=== PATIENT | male | born 1940 | race Caucasian/White ===

== ENCOUNTER 2018-09-25 17:07 | Emergency (ER) | payer MEDICARE ==
--- NOTE | 2018-09-25 17:16 | ED ---
GI/ HPI - HPI Summary HPI Summary: 77 year old M brought in by ambulance to [facility] with a chief complaint of partially obstructed airway s/p getting a piece of roast beef stuck in his throat after eating lunch at 12:00 today. The patient rates the pain 0/10 in severity. Symptoms aggravated by nothing. Symptoms alleviated by nothing. Patient denies shortness of breath and chest pain. - History of Current Complaint Stated Complaint: OBSTRUCTION AIRWAY PER EMS Hx Obtained From: Patient Onset/Duration: Started Hours Ago - lunch, Still Present Timing: Constant Associated Signs and Symptoms: Positive: Negative - SOB Aggravating Factor(s): Nothing Alleviating Factor(s): Nothing - Allergy/Home Medications Home Medications: Home Medications Albuterol inh POWDER (NF) [Proair Respiclick] 2 puff INH Q6HR PRN 09/25/18 [ History Confirmed 09/25/18] Apixaban* [Eliquis*] 5 mg PO BID 09/25/18 [History Confirmed 09/25/18] Ascorbic Acid TAB* [Vitamin C TAB*] 500 mg PO DAILY 09/25/18 [History Confirmed 09/25/18] Atorvastatin* [Lipitor*] 80 mg PO QPM 09/25/18 [History Confirmed 09/25/18] Budesonide/Formote 160/4.5(NF) [Symbicort 160/4.5 (NF)] 1 puff INH BID 09/25/18 [History Confirmed 09/25/18] Glucosamine HCl 1,500 mg PO DAILY 09/25/18 [History Confirmed 09/25/18] Latanoprost 0.005%* [Xalatan 0.005%*] 1 drop BOTH EYES QPM 09/25/18 [History Confirmed 09/25/18] Levothyroxine TAB* [Synthroid TAB*] 75 mcg PO DAILY 09/25/18 [History Confirmed 09/25/18] Multivitamins/Minerals TAB* [Theragran/minerals TAB*] 1 tab PO DAILY 09/25/18 [ History Confirmed 09/25/18] [place]-3S/Dha/Epa/Fish Oil [Fish Oil 1,200 mg Softgel] 1 cap PO EVERY OTHER DAY 09/25/18 [History Confirmed 09/25/18] Sotalol (NF) 120 mg PO BID 09/25/18 [History Confirmed 09/25/18] Vitamin E CAP* 400 unit PO EVERY OTHER DAY 09/25/18 [History Confirmed 09/25/18] PMH/Surg Hx/FS Hx/Imm Hx Previously Healthy: No Cardiovascular History: Reports: Hx Atrial Fibrillation, Hx Hypertension, Hx Myocardial Infarction, Other Cardiovascular Problems/Disorders - stent placement Respiratory History: Reports: Hx Asthma History: Reports: Hx Benign Prostatic Hyperplasia Sensory History: Reports: Hx Contacts or Glasses Denies: Hx Deafness Opthamlomology History: Reports: Hx Contacts or Glasses EENT History: Denies: Hx Deafness - Surgical History Surgery Procedure, Year, and Place: hernia repair, knee replacements, tympanoplasty - Family History Known Family History: Negative: Cardiac Disease, Hypertension, Diabetes - Social History Alcohol Use: None Hx Substance Use: No Substance Use Type: Reports: None Hx Tobacco Use: No Smoking Status (MU): Never Smoked Tobacco Review of Systems Negative: Chest Pain Positive: Other - partially obstructed airway . Negative: Shortness Of Breath All Other Systems Reviewed And Are Negative: Yes Physical Exam - Summary Physical Exam Summary: VITAL SIGNS: Reviewed. GENERAL: Patient is a well-developed and nourished male who is lying comfortable in the stretcher. Patient is not in any acute respiratory distress. Patient is drooling HEAD AND FACE: No signs of trauma. No ecchymosis, hematomas or skull depressions. No sinus tenderness. EYES: PERRLA, EOMI x 2, No injected conjunctiva, no nystagmus. EARS: Hearing grossly intact. Ear canals and tympanic membranes are within normal limits. MOUTH: Oropharynx within normal limits. NECK: Supple, trachea is midline, no adenopathy, no JVD, no carotid bruit, no c- spine tenderness, neck with full ROM. CHEST: Symmetric, no tenderness at palpation LUNGS: Clear to auscultation bilaterally. No wheezing or crackles. CVS: Regular rate and rhythm, S1 and S2 present, no murmurs or gallops appreciated. ABDOMEN: Soft, non-tender. No signs of distention. No rebound no guarding, and no masses palpated. Bowel sounds are normal. EXTREMITIES: FROM in all major joints, no edema, no cyanosis or clubbing. NEURO: Alert and oriented x 3. No acute neurological deficits. Speech is normal and follows commands. SKIN: Dry and warm. Triage Information Reviewed: Yes Vital Signs Reviewed: Yes GIGU Course/Dx - Course Assessment/Plan: 77 year old M brought in by ambulance to [facility] with a chief complaint of partially obstructed airway s/p getting a piece of roast beef stuck in his throat after eating lunch at 12:00 today. The patient rates the pain 0/10 in severity. Symptoms aggravated by nothing. Symptoms alleviated by nothing. Patient denies shortness of breath and chest pain. Patients past medical history significant for BPH, hypertension, dyslipidemia, CAD, NH status post stent placement on Eliquis, and GERD, asthma and paroxysmal atrial fibrillation. Patient was initially seen in the [facility] where they did blood work for this patient which showed a CBC without any significant abnormality, CMP showed a glucose of 104, BUN of 33, creatinine of 1.8. The physician assisting at [facility] discussed the case with Dr. Conti from GI who recommended for the patient to come to the [facility] where he will come and consult for this patient. I discussed case with Dr. Conti and he will come and consult for this patient. Patient will be signed out to Dr. Peralta at shift change. We are still awaiting for Dr. Conti to consult for the patient. - Diagnoses Provider Diagnoses: Esophagus, foreign body - Physician Notifications Discussed Care Of Patient With: Moisés Conti Time Discussed With Above Provider: 17:15 Instructed by Provider To: Other - Dr. Conti , agrees to consult the patient Discharge - Sign-Out/Discharge Documenting (check all that apply): Sign-Out Patient Signing out patient TO: Jeffrey Peralta - Awaiting GI consult Patient Received Moderate/Deep Sedation with Procedure: No - Discharge Plan Condition: Stable Referrals: Maria T Mccrary MD [Primary Care Provider] - - Billing Disposition and Condition Condition: STABLE - Attestation Statements Document Initiated by Scribe: Yes Documenting Scribe: Jessi Bonner Provider For Whom Scribe is Documenting (Include Credential): Ayad Rodriguez MD Scribe Attestation: Jessi Ventura, scribed for Ayad Rodriguez MD on 09/25/18 at 1856. Scribe Documentation Reviewed: Yes Provider Attestation: The documentation as recorded by the scribeJessi accurately reflects the service I personally performed and the decisions made by me, Ayad Rodriguez MD Status of Scribe Document: Viewed
[2018-09-25] MEDS ORDERED: Midazolam* 1 MG/ML 10 ML VIAL (10 MG) ONE (18:46)
[2018-09-25] MEDS ORDERED: fentaNYL* 50 MCG/ML 2 ML VIAL (100 MCG VIAL) ONE (18:46)
--- NOTE | 2018-09-25 19:13 | ED ---
Progress - Progress Note Progress Note: The patient is a sign-out from Dr. Ayad Rodriguez MD, to Dr. Jeffrey Peralta MD , at change of shift at 1900 pending further GI workup with consult with Dr. Conti and disposition. He is diagnosed with foreign body of the esophagus. Dr. Conti came to the patient in the ED at 1945. At 1999, we spoke concerning the patient's disposition. He will be discharged home with prescription for Omeprazole and Clotrimazole, in dosages discussed and agreed upon with Dr. Conti. He will also follow up with Dr. Conti in 2-3 weeks. He agrees with this plan and understands the need for return to the emergency department for any new or worsening symptoms. Course/Dx - Diagnoses Provider Diagnoses: Esophagus, foreign body - Provider Notifications Discussed Care Of Patient With: Moisés Conti - gastroenterology Time Discussed With Above Provider: 20:00 Instructed by Provider To: Other - Dr. Conti came to the ED for a consult with the patient. He suggests prescribing the patient Omprazole 20mg daily ( morning) and Clotrimazole QID and then BID for three weeks. He will also see the patient for a follow-up appointment in 2-3 weeks. Discharge - Sign-Out/Discharge Documenting (check all that apply): Patient Departure - Patient will be discharged home., Receiving Sign-Out Receiving patient FROM: Ayad Rodriguez - Patient was a sign-out from Dr. Rodriguez at shift change pending GI consult and disposition. Patient Received Moderate/Deep Sedation with Procedure: Yes - Discharge Plan Condition: Stable Disposition: HOME Prescriptions: Clotrimazole YANN* [Mycelex Yann*] 10 mg MT SEE INSTRUCTIONS #105 yann Omeprazole CAP (NF) [Prilosec CAP* 20 MG] 20 mg PO DAILY #30 lilly. Patient Education Materials: Esophageal Foreign Body (ED), Procedural Sedation (ED) Referrals: Moisés Conti MD [Medical Doctor] - 2 Weeks Maria T Mccrary MD [Primary Care Provider] - 2 Days Additional Instructions: Please take medications as prescribed and discussed with Dr. Conti. Follow up with Dr. Conti in 2-3 weeks and your primary care provider as needed. RETURN TO THE EMERGENCY DEPARTMENT FOR ANY NEW OR WORSENING SYMPTOMS. - Billing Disposition and Condition Condition: STABLE Disposition: Home - Attestation Statements Document Initiated by Eliane: Yes Documenting Scribe: Lorenza Pulido Provider For Whom Eliane is Documenting (Include Credential): Dr. Jeffrey Peralta MD Scribe Attestation: Lorenza Ventura scribed for Dr. Jeffrey Peralta MD on 09/25/18 at 2022. Scribe Documentation Reviewed: Yes Provider Attestation: The documentation as recorded by the Lorenza esposito accurately reflects the service I personally performed and the decisions made by me, Dr. Jeffrey Peralta MD Status of Scribe Document: Viewed
[2018-09-25 20:13] VITALS: BP 142/76
--- NOTE | 2018-09-25 22:15 | CONS ---
GASTROENTEROLOGY CONSULT: DATE OF CONSULT: 09/25/18 CONSULTING PHYSICIAN: Dr. Ayad Rodriguez, Emergency Room. REASON FOR CONSULT: Impacted meat in the esophagus. 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 He has had this happen before, but just for seconds. He thinks it has been about once a month or maybe even less, beginning maybe 3 years ago. He was not in any particular [place] today. He can't explain why it was worse. He denies any acid, indigestion, or heartburn and does not take any gastrointestinal remedies by prescription or over the counter. He has never had an upper endoscopy. He does not believe he has told a physician about the difficulty swallowing events. He generally has a good appetite and his weight has been steadily slowly climbing. He has been a little more constipated recently. He denies any blood in the stool. He saw his regular physician about a month ago and there were no new findings and no changes in his meds. He follows up with a information security, that has been stable too in his opinion and confirmed by his and daughter who are with him. PAST MEDICAL HISTORY: 1. Coronary artery disease - status post stents at [facility] in 2013. 2. Mild obstructive pulmonary disease - on some inhalers. 3. Atrial fibrillation - on Eliquis - no history of clots 4. Joint disease - he has had bilateral knee replacements and bilateral revisions. His orthopedic surgeon told him that he cannot have further revisions. 5. Bilateral inguinal hernia repairs. SOCIAL HISTORY: He is a retired marinelli, worked on bridges. He is . He does not smoke and denies any alcohol intake. REVIEW OF SYSTEMS: No history of syncope, palpitations, recent chest pain, hemoptysis, TB, hepatitis, jaundice, recent abdominal pain, falls, head trauma, or overt blood clots. He has an upper denture, acquired about 40 years ago. PHYSICAL EXAM: He is a moderately overweight elderly man, in no overt distress , spitting into a basin. HEENT exam shows no icterus. Mucous membranes are normal. The denture appears ill fitting. There is no adenopathy. Lungs are clear bilaterally with diminished breath sounds at the bases. Heart sounds are irregular. He had a murmur. The abdomen is obese, firm, without tenderness. The exam is limited. Extremities show no edema and popliteal pulses are intact. DIAGNOSTIC STUDIES/LAB DATA: At [facility], BUN 33, creatinine 1.8. IMPRESSION: This 77-year-old man with 3 years of solid food dysphagia for unclear reasons has a larger bolus lodged in the esophagus. It is probably in unappreciated peptic stricture. It is indicated to get the foreign body out before he ends up with pressure ulcer or aspiration pneumonia. It was explained that that may have already occurred. Once the foreign body is relieved, he should come back for followup and presumably have dilation of the EG junction which is probably the site of obstruction. He and his family are aware there is a 5% chance of complications requiring readmission and possibly other more complex care. [id number]/[facility] #: [id number] LORENZA
--- NOTE | 2018-09-26 02:42 | PRO ---
DATE: 09/25/18 REFERRING PHYSICIAN: Maria T Mccrary Wayne.* PROCEDURES: Upper gastrointestinal endoscopy and removal of esophageal foreign body. INDICATION: This 77-year-old man presented with apparent roast beef impacted in the esophagus. He was spitting into a basin. He was afebrile and in no cardiorespiratory distress and with stable vitals. With his and daughter present, informed consent was obtained with an opportunity for questions, special concerns, and a discussion regarding the possibility of admission for variable findings and difficulties. ENDOSCOPIST: Dr. Conti MEDICATIONS: Midazolam 4, fentanyl 25. FINDINGS: He is a substantially overweight older man in no distress. He is spitting into a cup. He was positioned left side down and moderate sedation induced with sequential doses of medication. A bite block was placed. EGD: Larynx - not seen easily as he had a large powerful tongue. During the withdrawal phase, it was symmetric. Esophagus - easily entered. The mucosa had a zysho-ygu-ldig appearance consistent with monilia. There was increasing edema as one went distally and at about 30 cm, a large meat foreign body was seen. It appeared long and stringy. It was immobile. The diagnostic scope slid along it and then popped into the gastric cardia. Several such movements advanced the foreign body into the stomach. There was a large hiatal hernia from about 35 to 40. During the withdrawal phase, it was appreciated that there was substantial monilia. Stomach - large hiatal hernia, but no other abnormality seen. Duodenum - the pylorus, bulb and second through fourth portions appeared normal. IMPRESSION: 1. Large hiatal hernia. 2. Clinical GERD - it appeared there was an EG junction ring consistent with a slowly evolving scarring phenomenon. This should be dilated once the monilia is treated and his other medical problems can be adjusted for in the plan. 3. Esophageal foreign body - resolved. 4. Esophageal monilia - clotrimazole troches will be given, suck and swallow 4 times a day for a week and then twice a day. He will also be placed on omeprazole 20 mg for his GERD and ring stricture. [id number]/[facility] #: [id number] [facility]
== END 2018-09-25 20:39 | disposition home or self-care (01) ==
LOC: ED 17:07
DX: T18.128A Food in esophagus causing other injury, initial encounter (principal); X58.XXXA Exposure to other specified factors, initial encounter; Y92.9 Unspecified place or not applicable; I25.2 Old myocardial infarction; I10 Essential (primary) hypertension; N40.0 Benign prostatic hyperplasia without lower urinary tract symptoms
CPT/HCPCS: 99156; 99285; J2250; J3010